=== PATIENT | female | born 1950 | race Caucasian/White ===

== ENCOUNTER 2022-01-07 06:32 | Day surgery (SDC) | payer MEDICARE, BC ==
[~2022-01-07] VITALS: Ht 177.8 cm; Wt 95.4 kg
[2022-01-07] VITALS (21 sets, daily range): BP systolic 102–143; BP diastolic 51–88
[2022-01-07] MEDS ORDERED: normal saline 1000ml 1,000 ML IV PRN (07:00)
[2022-01-07] MEDS ORDERED: ESOM40CA54 PO (07:08)
[2022-01-07] MEDS ORDERED: BENA10TA75 PO (07:08)
[2022-01-07] MEDS ORDERED: VENL150C58 PO (07:08)
[2022-01-07] MEDS ORDERED: ATOR40TA72 PO (07:08)
[2022-01-07] MEDS ORDERED: APIX5TAB3 PO (07:08)
[2022-01-07] MEDS ORDERED: ATEN-236 PO (07:08)
[2022-01-07] MEDS ORDERED: HYDR-3964 PO (07:08)
[2022-01-07 08:22] LABS: BASOPHILS % (AUTO) 0.1 % (0-1); EOSINOPHILS % (AUTO) 0.2 % (0-6); HEMATOCRIT 37.3 % (35.0-45.0); HEMOGLOBIN 12.3 g/dl (12.0-16.0); LYMPHOCYTES % (AUTO) 27.5 % (21-51); MEAN CORPUSCULAR HEMOGLOBIN 28.8 PG (27.0-31.0); MEAN CORPUSCULAR HGB CONC 33.1 g/dL (33.0-36.5); MEAN CORPUSCULAR VOLUME 87.2 FL (78-98); MEAN PLATELET VOLUME 8.3 FL (7.4-10.4); MONOCYTES # (AUTO) 0.5 X10'3 (0-0.9); NEUTROPHILS # (AUTO) 4.9 X10'3 (1.8-7.7); NEUTROPHILS % (AUTO) 65.2 % (42-75); PLATELET COUNT 302 X10'3 (140-440); RED BLOOD COUNT 4.27 X10'6 (4.20-5.60); WHITE BLOOD COUNT 7.4 X10'3 (4.5-11.0)
[2022-01-07] MEDS ORDERED: midazolam 1 mg/ML 2ml injection ONE (08:49)
[2022-01-07] MEDS ORDERED: fentaNYL/PF 50MCG/1 ML 2ML syringe ONE (08:49)
[2022-01-07] MEDS ORDERED: LIDOcaine 1%/PF 5ML 10 MG/ML VIAL ONE (08:49)
[2022-01-07 09:04] LABS: ALBUMIN 3.4 G/DL (3.4-5.0); ANION GAP 11 (8-16); BLOOD UREA NITROGEN 19 MG/DL (7-18); BUN/CREATININE RATIO 23.5 (6.6-38.0); CALCIUM 9.2 MG/DL (8.5-10.1); CHLORIDE 105 MMOL/L (99-107); CREATININE 0.81 MG/DL (0.40-0.90); GLUCOSE 103 MG/DL (70-104); POTASSIUM 3.8 MMOL/L (3.5-5.1); SODIUM 141 MMOL/L (135-145); TOTAL CARBON DIOXIDE 25.4 MMOL/L (24-32); eGFR 70 ML/MIN
[2022-01-07] MEDS ORDERED: normal saline 1000ml 1,000 ML IV SCH (09:05)
[2022-01-07] MEDS ORDERED: IODIXANOL IV ONE (09:40)
== END 2022-01-07 14:55 | disposition home or self-care (01) ==
LOC: SSTAY O 06:32
PROVIDERS: ATTEND Radiology Diagnostic Radiology
DX: R16.1 Splenomegaly, not elsewhere classified (principal); C54.1 Malignant neoplasm of endometrium; K21.9 Gastro-esophageal reflux disease without esophagitis; I48.91 Unspecified atrial fibrillation; F32.9 Major depressive disorder, single episode, unspecified; E78.5 Hyperlipidemia, unspecified; I10 Essential (primary) hypertension; Z90.710 Acquired absence of both cervix and uterus; Z79.899 Other long term (current) drug therapy; Z98.890 Other specified postprocedural states
CPT/HCPCS: 10009; 36415; 80048; 85025; 85610; 87070; 99152; 99153; J2250; J3010; J3490; J7030; Q9967; 49180; 77012; A4615; A6258; A6402